=== PATIENT | female | born 1960 | race African-American/Black ===

== ENCOUNTER 2017-11-07 14:06 | Emergency (ER) | payer MEDICARE, MEDICAID ==
[~2017-11-07] VITALS: Ht 167.6 cm; Wt 80.0 kg
[2017-11-07] MEDS ORDERED: GABA-531 PO (14:33)
[2017-11-07] MEDS ORDERED: HYDR200T80 PO (14:33)
[2017-11-07] MEDS ORDERED: ALBU6.7H INH (14:33)
[2017-11-07] MEDS ORDERED: TRAM50TA3 PO (14:33)
[2017-11-07] MEDS ORDERED: BENA20TA3 MT (14:33)
[2017-11-07] MEDS ORDERED: FOLI-43 PO (14:33)
[2017-11-07] MEDS ORDERED: ASPI-1159 PO (14:33)
[2017-11-07] MEDS ORDERED: [UNRECOGNIZED DRUG - CODE] PO (14:33)
[2017-11-07] MEDS ORDERED: METH5TAB2 PO (14:33)
[2017-11-07] MEDS ORDERED: PRAV20TA57 PO (14:33)
[2017-11-07] MEDS ORDERED: ONDA8TAB6 PO (14:33)
[2017-11-07] MEDS ORDERED: METF500T4 PO (14:33)
[2017-11-07] MEDS ORDERED: OMEP20TA2 PO (14:33)
[2017-11-07] MEDS ORDERED: MORPHINE SULFATE 4 MG/ML CPJ (NOT FOR IM USE) IV ONE (15:30)
[2017-11-07] MEDS ORDERED: ONDANSETRON HCL 4MG/2ML VIAL IV ONE (15:30)
[2017-11-07] MEDS ORDERED: DIPHENHYDRAMINE 50MG/ML VIAL IV ONE (16:00)
[2017-11-07 16:12] LABS: BASOPHILS % 0.3 % (0.0-2.0); EOSINOPHILS % 0.5 % (0.0-5.0); HEMATOCRIT. 32.4 % (36.0-48.0); HEMOGLOBIN. 10.4 g/dL (12.0-16.0); LYMPHOCYTES % 11.7 % (20.0-50.0); MEAN CORPUSCULAR HEMOGLOBIN 25.1 pg (28.0-32.0); MEAN CORPUSCULAR VOLUME 78.2 fL (81.0-99.0); MONOCYTES % 5.4 % (2.0-8.0); NEUTROPHILS % 82.1 % (40.0-76.0); PLATELET 165 x1000/uL (130-400); RED BLOOD CELL COUNT 4.14 mill/uL (4.2-5.4); RED CELL DISTRIBUTION WIDTH 15.3 % (11.6-14.6)
[2017-11-07 16:17] LABS: CHLORIDE 111 mEq/L (98-107)
[2017-11-07 16:18] LABS: PROTHROMBIN TIME 10.9 sec (9.4-11.6)
[2017-11-07] MEDS ORDERED: SODIUM CHLORIDE 0.9% 1,000 ML IV ONE (18:04)
[2017-11-07 21:25] VITALS: BP 123/76
== END 2017-11-07 21:30 | disposition home or self-care (01) ==
LOC: ER 14:42
DX: R10.9 Unspecified abdominal pain (principal); R11.2 Nausea with vomiting, unspecified; E11.9 Type 2 diabetes mellitus without complications; M32.9 Systemic lupus erythematosus, unspecified; Z79.82 Long term (current) use of aspirin; Z88.1 Allergy status to other antibiotic agents; Z88.5 Allergy status to narcotic agent; Z88.6 Allergy status to analgesic agent; Z88.8 Allergy status to other drugs, medicaments and biological substances; Z90.49 Acquired absence of other specified parts of digestive tract
CPT/HCPCS: 36415; 74176; 80053; 83690; 85025; 85610; 96361; 96374; 96375; 99285; J1200; J2270; J2405; J7030